=== PATIENT | male | born 1955 | race Caucasian/White ===

== ENCOUNTER 2016-12-23 16:35 | Emergency (ER) | payer BC ==
[2016-12-23 17:09] VITALS: BP 144/74
[2016-12-23] MEDS ORDERED: Tetan/Diph/Pertus SYR(Tdap)* 0.5 ML SYR(BOOSTRIX) use SYR IM ONE (17:31)
--- NOTE | 2016-12-23 17:45 | ED ---
Skin Complaint - HPI Summary HPI Summary: 61 yr old male with injury to the scalp by a nail on his deck. Hit his head yesterday. he cannot find the specific area and does not feel a puncture wound , but he had a Td shot 12 years ago and is due for a booster shot. No other complaints. - History of Current Complaint Chief Complaint: UCWounds Time Seen by Provider: 12/23/16 17:20 Stated Complaint: HEAD WOUND - Allergy/Home Medications Allergies/Adverse Reactions: Allergies Allergy/AdvReac Type Severity Reaction Status Date / Time No Known Allergies Allergy Verified 12/23/16 17:09 PMH/Surg Hx/FS Hx/Imm Hx Endocrine/Hematology History: Denies: Hx Diabetes Cardiovascular History: Reports: Hx Hypertension - Surgical History Surgery Procedure, Year, and Place: CARDIAC STENT. ROTATOR CUFF REPAIR-2012. LAMINECTOMY SX-2000 Infectious Disease History: No Infectious Disease History: Denies: Hx Clostridium Difficile, Hx Hepatitis, Hx Human Immunodeficiency Virus (HIV), Hx of Known/Suspected MRSA, Hx Shingles, Hx Tuberculosis, Hx Known/ Suspected VRE, Hx Known/Suspected VRSA, History Other Infectious Disease, Traveled Outside the in Last 30 Days - Family History Known Family History: Positive: None - Social History Alcohol Use: Rare Substance Use Type: Reports: None Smoking Status (MU): Never Smoked Tobacco Review of Systems Positive: Other - puncture wound scalp nail All Other Systems Reviewed And Are Negative: Yes Physical Exam Triage Information Reviewed: Yes Vital Signs On Initial Exam: Initial Vitals Temp Pulse Resp BP Pulse Ox 98 F 65 14 144/74 100 12/23/16 17:05 12/23/16 17:05 12/23/16 17:05 12/23/16 17:05 12/23/16 17:05 Vital Signs Reviewed: Yes Appearance: Positive: Well-Appearing Head/Face: Positive: Normal Head/Face Inspection, Other - no puncture wound identified.. Negative: Cephalohematoma Eyes: Positive: EOMI Respiratory/Lung Sounds: Positive: Clear to Auscultation Cardiovascular: Positive: RRR. Negative: Murmur Musculoskeletal: Positive: Strength/ROM Intact Neurological: Positive: Alert, Oriented to Person Place, Time, CN Intact II-III Psychiatric: Positive: Normal - Lindsey Coma Scale Best Eye Response: 4 - Spontaneous Best Motor Response: 6 - Obeys Commands Best Verbal Response: 5 - Oriented Diagnostics - Vital Signs Vital Signs Temp Pulse Resp BP Pulse Ox 12/23/16 17:05 98 F 65 14 144/74 100 - Laboratory Lab Statement: Any lab studies that have been ordered have been reviewed, and results considered in the medical decision making process. Course/Dx - Course Course Of Treatment: 61 yr with HTN history and superficial puncture wound scalp TDAP updated. - Diagnoses Provider Diagnoses: Puncture wound of scalp Discharge - Discharge Plan Condition: Good Disposition: HOME Patient Education Materials: Diphtheria/Acellular Pertussis/Tetanus Booster Vaccine (By injection), Hypertension (ED) Referrals: Steve Correa MD [Primary Care Provider] - 2 Days
== END 2016-12-23 17:47 | disposition home or self-care (01) ==
LOC: UCCORT 16:35
DX: S01.03XA Puncture wound without foreign body of scalp, initial encounter (principal); I10 Essential (primary) hypertension; W22.8XXA Striking against or struck by other objects, initial encounter
CPT/HCPCS: 90471; 90715; 99211; G0463